=== PATIENT | female | born 1985 | race Two or more races ===

== ENCOUNTER 2020-10-14 02:25 | Outpatient (CLI) | payer OTHER, SELFPAY ==
[2020-10-14 18:38] LABS: SARS-CoV-2 RNA PCR Negative
== END 2020-10-14 02:26 | disposition home or self-care (01) ==
LOC: ANHCOVIDDT 02:25
PROVIDERS: Visit Provider Obstetrics & Gynecology
DX: Z01.812 Encounter for preprocedural laboratory examination (principal); Z20.822 Contact with and (suspected) exposure to COVID-19
CPT/HCPCS: C9803; U0003; U0005

== ENCOUNTER 2020-10-28 08:20 | Outpatient (NON) | payer OTHER, SELFPAY ==
[2020-10-29 00:37] LABS: SARS-CoV-2 RNA PCR Negative
== END 2020-10-28 08:21 ==
PROVIDERS: PCP Internal Medicine
DX: Z20.822 Contact with and (suspected) exposure to COVID-19 (principal)
CPT/HCPCS: C9803; U0003; U0005